=== PATIENT | male | born 1950 | race African-American/Black ===

== ENCOUNTER 2019-07-24 22:33 | Emergency (ER) | payer MEDICARE, MEDICAID ==
[~2019-07-24] VITALS: Ht 182.9 cm; Wt 77.0 kg
[2019-07-25] MEDS ORDERED: ONDANSETRON HCL 4MG/2ML INJ IV STA (00:19)
[2019-07-25] MEDS ORDERED: SODIUM CHLORIDE 0.9% 1,000 ML IV ONE (00:19)
[2019-07-25] MEDS ORDERED: FENTANYL CITRATE/PF 50MCG/ML 2ML VIAL IV ONE (00:30)
[2019-07-25 00:56] LABS: BASOPHILS % 0.7 % (0.0-2.0); EOSINOPHILS % 1.1 % (0.0-5.0); HEMATOCRIT. 31.1 % (42.0-52.0); HEMOGLOBIN. 10.3 g/dL (14.0-18.0); LYMPHOCYTES % 13.1 % (20.0-50.0); MEAN CORPUSCULAR HEMOGLOBIN 25.5 pg (28.0-32.0); MEAN CORPUSCULAR VOLUME 76.9 fL (80.0-94.0); MEAN PLATELET VOLUME 9.2 fl (7.4-10.4); MONOCYTES % 11.1 % (2.0-8.0); PLATELET 263 x1000/uL (130-400); RED BLOOD CELL COUNT 4.05 mill/uL (4.7-6.1); RED CELL DISTRIBUTION WIDTH 16.9 % (11.6-14.6)
[2019-07-25 01:11] LABS: CHLORIDE 104 mEq/L (98-107)
[2019-07-25 02:58] LABS: CLARITY URINE TURBID (CLEAR); COLOR URINE RED (YELLOW); KETONES URINE NEGATIVE (NEGATIVE); LEUKOCYTE ESTERASE URINE 3+ (NEGATIVE); NITRITE URINE NEGATIVE (NEGATIVE); OCCULT BLOOD URINE 3+ (NEGATIVE); PROTEIN URINE 2+ (NEGATIVE); SPECIFIC GRAVITY URINE 1.016 (1.005-1.030); UROBILINOGEN URINE 0.2 E.U./dL (0.2-1.0)
[2019-07-25] MEDS ORDERED: HYDROCODONE/ACETAMINOPHEN 5/325MG TABLET PO ONE (04:15)
[2019-07-25] MEDS ORDERED: IOHEXOL-300 100 ML BOTTLE ONE (05:17)
[2019-07-25 09:34] VITALS: BP 130/66
== END 2019-07-25 09:37 | disposition home or self-care (01) ==
LOC: ER 23:01
DX: R31.9 Hematuria, unspecified (principal); M54.2 Cervicalgia; M54.9 Dorsalgia, unspecified; I10 Essential (primary) hypertension; R33.9 Retention of urine, unspecified; Z85.46 Personal history of malignant neoplasm of prostate
CPT/HCPCS: 36415; 51702; 74177; 80053; 81003; 83690; 85025; 87086; 96374; 96375; 99284; J2405; J3010; J7030; Q9967; A4315